=== PATIENT | female | born 1995 ===

== ENCOUNTER 2018-07-09 09:37 | Emergency (ER) | payer MEDICAID ==
[2018-07-09 09:46] VITALS: BMI 23.3
[2018-07-09 09:50] VITALS: RESP 18
[2018-07-09 11:46] LABS: BASO % 0.3 % (0.0-2.0); EOS # 0.1 K/uL (0.0-0.7); EOS % 1.6 % (0.0-4.0); HEMOGLOBIN 12.8 g/dL (11.0-16.0); LYMPH % 25.4 % (20.0-40.0); MEAN CELL VOLUME 94.6 fL (81.0-99.0); MEAN CORPUSCULAR HEMOGLOBIN 33.7 pg (27.0-31.0); MEAN CORPUSCULAR HGB CONC 35.6 g/dL (33.0-37.0); MEAN PLATELET VOLUME 8.2 fL (7.2-11.7); MONO # 0.6 K/uL (0.0-0.8); NEUT # 5.1 K/uL (1.8-7.0); NEUT % 64.7 % (50.0-75.0); NRBC % 0.1 % (0.0-2.0); RBC 3.79 Mil/uL (3.80-5.20); RED CELL DISTRIBUTION WIDTH 13.7 % (11.5-14.5); WHITE BLOOD COUNT 7.8 K/uL (4.8-10.8)
[2018-07-09 11:54] LABS: PROTHROMBIN TIME 11.2 SECONDS (9.7-12.2)
[2018-07-09 12:01] LABS: ALB/GLOB RATIO 1.3 (1.0-2.1); ALBUMIN 3.7 g/dL (3.5-5.0); AST/SGOT 16 U/L (14-36); BLOOD UREA NITROGEN 8 mg/dL (7-17); CALCIUM 9.6 mg/dl (8.6-10.4); GFR NON-AFRICAN AMERICAN > 60
[2018-07-09 12:08] LABS: ALT/SGPT < 6 U/L (9-52)
--- NOTE | 2018-07-09 12:48 | US ---
Limited pelvic ultrasound HISTORY: . Fall. Vaginal bleeding. Comparison: None available. Technique: Real-time sonography was performed through the pelvis. Findings: Please note this was a limited study for viability purposes only. Dedicated anatomic survey to assess for anomalies is recommended at interval date. Cervix measures 3.4 centimeters. Anterior placental positioning. Placenta appears approximately 2.1 centimeters away from the covering os. Transverse presentation/ lie. heart rate of 138 beats per minute. Mean ultrasound age of approximately 16 weeks and 5 days. Biparietal diameter measures 3.48 centimeters, head circumference measures 13.19 centimeters, abdominal circumference measures 10.95 centimeters, and femur length measures 2.13 centimeters. No free fluid in the pelvic cul-de-sac. Bilateral ovaries not well visualized. Impression: Please note this was a limited study for viability purposes only. Dedicated anatomic survey to assess for anomalies is recommended at an interval date. Bilateral ovaries not well visualized. Single viable intrauterine corresponding to a mean ultrasound age of approximately 16 weeks and 5 days with heart rate of 138 beats per minute. Clinical correlation. Please note given the limited nature of the study, the four-chamber heart view was suboptimally visualized. Again correlation with dedicated anatomic survey is recommended to better assess for anomaly. Clinical correlation.
--- NOTE | 2018-07-09 13:02 | C.PDOC ---
History Of Present Illness 23 y/o female, 15 weeks A1, comes in stating that yesterday she was going downstairs when slipped and fell down on her buttocks. Patient reports she had vaginal bleeding afterwards that has stopped and now she complains of some pelvic pain. Patient has no other complaints. Time Seen by Provider: 07/09/18 10:14 Chief Complaint (Nursing): Abdominal Pain History Per: Patient History/Exam Limitations: no limitations Onset/Duration Of Symptoms: Days Current Symptoms Are (Timing): Still Present Past Medical History Reviewed: Historical Data, Nursing Documentation, Vital Signs Vital Signs: Last Vital Signs Temp 98.7 F 07/09/18 09:46 Pulse 86 07/09/18 09:46 Resp 18 07/09/18 09:46 BP 108/74 07/09/18 09:46 Pulse Ox 98 07/09/18 09:46 Family History: States: No Known Family Hx - Social History Hx Alcohol Use: No Hx Substance Use: No - Immunization History Hx Tetanus Toxoid Vaccination: No Hx Influenza Vaccination: No Hx Pneumococcal Vaccination: No Review Of Systems Except As Marked, All Systems Reviewed And Found Negative. Constitutional: Negative for: Fever, Chills Cardiovascular: Negative for: Chest Pain Respiratory: Negative for: Shortness of Breath Gastrointestinal: Negative for: Vomiting Genitourinary: Positive for: Vaginal Bleeding (resolved), Pelvic Pain Physical Exam - Physical Exam Appears: Non-toxic, No Acute Distress Skin: Warm, Dry Head: Atraumatic, Normacephalic Eye(s): bilateral: Normal Inspection Oral Mucosa: Moist Neck: Supple Cardiovascular: Rhythm Regular, No Murmur Respiratory: Normal Breath Sounds, No Rales, No Rhonchi, No Wheezing Gastrointestinal/Abdominal: Tenderness (to suprapubic area, right more than left ), No Guarding, No Rebound Extremity: Bilateral: Atraumatic, Normal ROM Neurological/Psych: Oriented x3, Normal Speech, Normal Motor ED Course And Treatment - Laboratory Results Result Diagrams: 07/09/18 11:36 07/09/18 11:36 Lab Results: PT 11.2 SECONDS (9.7-12.2) 07/09/18 11:36 INR 1.0 07/09/18 11:36 APTT 28 SECONDS (21-34) 07/09/18 11:36 Total Bilirubin 0.2 mg/dL (0.2-1.3) 07/09/18 11:36 AST 16 U/L (14-36) 07/09/18 11:36 ALT < 6 U/L (9-52) L 07/09/18 11:36 Alkaline Phosphatase 51 U/L (38-126) 07/09/18 11:36 Total Protein 6.5 g/dL (6.3-8.3) 07/09/18 11:36 Albumin 3.7 g/dL (3.5-5.0) 07/09/18 11:36 Globulin 2.7 gm/dL (2.2-3.9) 07/09/18 11:36 Albumin/Globulin Ratio 1.3 (1.0-2.1) 07/09/18 11:36 Beta HCG, Quant 93844.00 mIU/ML 07/09/18 11:36 O2 Sat by Pulse Oximetry: 98 (RA) Pulse Ox Interpretation: Normal - CT Scan/US Obstetrics US Other Rad Studies (CT/US): Read By Radiologist, Radiology Report Reviewed CT/US Interpretation: Findings: Please note this was a limited study for viability purposes only. Dedicated anatomic survey to assess for anomalies is recommended at interval date. Cervix measures 3.4 centimeters. Anterior placental positioning. Placenta appears approximately 2.1 centimeters away from the covering os. Transverse presentation/ lie. heart rate of 138 beats per minute. Mean ultrasound age of approximately 16 weeks and 5 days. Biparietal diameter measures 3.48 centimeters, head circumference measures 13.19 centimeters, abdominal circumference measures 10.95 centimeters, and femur length measures 2.13 centimeters. No free fluid in the pelvic cul-de-sac. Bilateral ovaries not well visualized. Impression: Please note this was a limited study for viability purposes only. Dedicated anatomic survey to assess for anomalies is recommended at an interval date. Bilateral ovaries not well visualized. Single viable intrauterine corresponding to a mean ultrasound age of approximately 16 weeks and 5 days with heart rate of 138 beats per minute. Clinical correlation. Please note given the limited nature of the study, the four-chamber heart view was suboptimally visualized. Again correlation with dedicated anatomic survey is recommended to better assess for anomaly. Clinical correlation. Progress Note: Labs and obstetrics US ordered. On re-evaluation patient w/o vaginal bleeding. US w/o acute abnormalities. Copies of all labs and US given to the patient. She is stable to be d/c home with OBGYN f/u within 1-2 days. Patient was instructed to return to ED if feel worse. Disposition - Disposition Referrals: Nicola Salinas MD [Staff Provider] - Disposition: HOME/ ROUTINE Disposition Time: 15:03 Condition: STABLE Additional Instructions: Follow up with OBGYN within 1-2 days. Return to ED if feel worse. Instructions: Preventing Falls Forms: [employer] (Kazakh) Print Language: NEPALI - Clinical Impression Clinical Impression: Fall, Pelvic pain affecting - PA / NEONATAL PEDIATRIC NURSE / Resident Statement MD/DO has reviewed & agrees with the documentation as recorded. - Scribe Statement The provider has reviewed the documentation as recorded by the Scribkamila Mello All medical record entries made by the Williamibkamila were at my direction and personally dictated by me. I have reviewed the chart and agree that the record accurately reflects my personal performance of the history, physical exam, medical decision making, and the department course for this patient. I have also personally directed, reviewed, and agree with the discharge instructions and disposition.
[2018-07-09 14:34] VITALS: BP 110/70; PULSE 80; TEMP 98.6
[2018-07-09 15:05] VITALS: O2SAT 98
== END 2018-07-09 15:11 | disposition home or self-care (01) ==
LOC: C.ER 09:37
DX: O26.892 Other specified pregnancy related conditions, second trimester (principal); R10.2 Pelvic and perineal pain; Z3A.16 16 weeks gestation of pregnancy; W01.0XXA Fall on same level from slipping, tripping and stumbling without subsequent striking against object, initial encounter